=== PATIENT | female | born 1940 ===

== ENCOUNTER 2018-11-09 08:13 | Outpatient (CLI) | payer OTHER ==
[~2018-11-09] VITALS: Ht 154.9 cm; Wt 78.9 kg
== END 2018-11-09 08:30 | disposition home or self-care (01) ==
LOC: OFIC 805 08:13
DX: H90.42 Sensorineural hearing loss, unilateral, left ear, with unrestricted hearing on the contralateral side (principal); R43.8 Other disturbances of smell and taste; J31.0 Chronic rhinitis; J34.2 Deviated nasal septum; J34.3 Hypertrophy of nasal turbinates

== ENCOUNTER 2018-12-21 08:17 | Outpatient (CLI) | payer OTHER ==
[~2018-12-21] VITALS: Ht 152.4 cm; Wt 78.9 kg
== END 2018-12-21 08:30 | disposition home or self-care (01) ==
LOC: OFIC 805 08:17
DX: R43.8 Other disturbances of smell and taste (principal); J31.0 Chronic rhinitis; J34.2 Deviated nasal septum; J34.3 Hypertrophy of nasal turbinates; H90.3 Sensorineural hearing loss, bilateral; Q05.9 Spina bifida, unspecified

== ENCOUNTER 2019-02-22 08:11 | Outpatient (CLI) | payer OTHER ==
[~2019-02-22] VITALS: Ht 152.4 cm; Wt 79.4 kg
== END 2019-02-22 08:30 | disposition home or self-care (01) ==
LOC: OFIC 805 08:11
DX: R43.8 Other disturbances of smell and taste (principal); J31.0 Chronic rhinitis; J34.2 Deviated nasal septum; J34.3 Hypertrophy of nasal turbinates; H90.3 Sensorineural hearing loss, bilateral

== ENCOUNTER 2019-05-16 12:07 | Outpatient (CLI) | payer OTHER ==
[~2019-05-16] VITALS: Ht 152.4 cm; Wt 79.4 kg
[2019-05-16] MEDS ORDERED: FLONASE16 GM NASAL (13:14)
[2019-05-16] MEDS ORDERED: CEFUROXIME500 MG PO (13:14)
[2019-05-16] MEDS ORDERED: ZYRTEC10 MG PO (13:14)
== END 2019-05-16 13:42 | disposition home or self-care (01) ==
LOC: OFIC 805 12:07
DX: H65.03 Acute serous otitis media, bilateral (principal); J01.80 Other acute sinusitis; H61.23 Impacted cerumen, bilateral; J31.0 Chronic rhinitis; R43.8 Other disturbances of smell and taste

== ENCOUNTER 2019-05-24 08:24 | Outpatient (CLI) | payer OTHER ==
[~2019-05-24] VITALS: Ht 152.4 cm; Wt 79.4 kg
[~2019-05-24 08:24] MED LIST: CEFUROXIME500 MG PO; FLONASE16 GM NASAL; ZYRTEC10 MG PO
== END 2019-05-24 13:00 | disposition home or self-care (01) ==
LOC: OFIC 805 08:24
DX: J31.0 Chronic rhinitis (principal); J01.80 Other acute sinusitis; H65.03 Acute serous otitis media, bilateral; H90.3 Sensorineural hearing loss, bilateral

== ENCOUNTER 2019-07-26 07:27 | Outpatient (CLI) | payer OTHER ==
[~2019-07-26] VITALS: Ht 152.4 cm; Wt 78.9 kg
[2019-07-26] MEDS ORDERED: FLONASE16 GM NASAL (08:47)
== END 2019-07-26 12:42 | disposition home or self-care (01) ==
LOC: OFIC 805 07:27
DX: J31.0 Chronic rhinitis (principal); J34.3 Hypertrophy of nasal turbinates; H90.3 Sensorineural hearing loss, bilateral

== ENCOUNTER 2020-03-21 09:13 | Outpatient (CLI) | payer OTHER | END 2020-03-21 10:00 | disposition home or self-care (01) | LOC: OFIC 805 09:13 | PROVIDERS: ATTEND Otolaryngology | DX: H90.3 Sensorineural hearing loss, bilateral (principal); J34.3 Hypertrophy of nasal turbinates; J34.2 Deviated nasal septum; J31.0 Chronic rhinitis; H81.13 Benign paroxysmal vertigo, bilateral ==

== ENCOUNTER 2020-04-30 11:26 | Outpatient (CLI) | payer OTHER | END 2020-04-30 18:47 | disposition home or self-care (01) | LOC: OFIC 805 11:26 | PROVIDERS: ATTEND Otolaryngology | DX: H81.13 Benign paroxysmal vertigo, bilateral (principal); H90.3 Sensorineural hearing loss, bilateral ==

== ENCOUNTER 2020-12-18 09:25 | Outpatient (CLI) | payer OTHER | END 2020-12-18 10:48 | disposition home or self-care (01) | LOC: OFIC 805 09:25 | PROVIDERS: ATTEND Otolaryngology Otology & Neurotology | DX: H90.3 Sensorineural hearing loss, bilateral (principal) ==

== ENCOUNTER 2020-12-20 08:16 | Outpatient (CLI) | payer OTHER | END 2020-12-20 08:23 | disposition home or self-care (01) | LOC: LAB 08:16 | PROVIDERS: ATTEND Internal Medicine Hematology & Oncology | DX: D50.8 Other iron deficiency anemias (principal); R79.89 Other specified abnormal findings of blood chemistry; I10 Essential (primary) hypertension; R74.02 Elevation of levels of lactic acid dehydrogenase [LDH]; K76.89 Other specified diseases of liver; D47.2 Monoclonal gammopathy; C90.00 Multiple myeloma not having achieved remission ==

== ENCOUNTER → 2021-01-09 09:24 | Outpatient (CLI) | payer OTHER | END | disposition home or self-care (01) | LOC: LAB 09:24 | PROVIDERS: ATTEND Internal Medicine Hematology & Oncology | DX: C56.9 Malignant neoplasm of unspecified ovary (principal); R97.0 Elevated carcinoembryonic antigen [CEA]; R97.8 Other abnormal tumor markers; M32.8 Other forms of systemic lupus erythematosus; M06.89 Other specified rheumatoid arthritis, multiple sites; M35.00 Sjogren syndrome, unspecified; K74.3 Primary biliary cirrhosis; M34.81 Systemic sclerosis with lung involvement; M33.20 Polymyositis, organ involvement unspecified; M05.89 Other rheumatoid arthritis with rheumatoid factor of multiple sites; D47.2 Monoclonal gammopathy; M35.09 Sjogren syndrome with other organ involvement ==

== ENCOUNTER → 2021-02-18 10:10 | Outpatient (CLI) | payer OTHER | END | disposition home or self-care (01) | LOC: LAB 10:10 | PROVIDERS: ATTEND Internal Medicine Hematology & Oncology | DX: I10 Essential (primary) hypertension (principal) ==